=== PATIENT | female | born 1980 | race Caucasian/White ===

== ENCOUNTER 2017-01-19 15:19 | Emergency (ER) | payer SELFPAY ==
[~2017-01-19] VITALS: Ht 157.5 cm; Wt 57.7 kg
[2017-01-19 16:52] VITALS: BP 136/87
== END 2017-01-19 17:02 | disposition home or self-care (01) ==
LOC: EME 15:19
DX: R51 Headache (principal); F17.200 Nicotine dependence, unspecified, uncomplicated
CPT/HCPCS: 99281; 99283; J1885